=== PATIENT | female | born 1935 | race Caucasian/White ===

== ENCOUNTER 2018-02-23 23:18 | Emergency (ER) | payer MEDICARE, BC ==
--- NOTE | 2018-02-23 23:36 | ED ---
Altered Mental Status - HPI Summary HPI Summary: This patient is an 82 year old F BIBA to [facility] accompanied by daughter with a chief complaint of increased agitation that began earlier today. The patient rates the pain 0/10 in severity. Symptoms aggravated by nothing. Symptoms alleviated by EMS treatment [employer]. Per EMS, patients assisted living facility has said that with the patients recent move and new medications, she became agitated. - History Of Current Complaint Stated Complaint: AMS Onset/Duration: Still Present Timing: Constant Severity Initially: Mild Severity Currently: Mild Character: Agitation Aggravating Factor(s): Nothing Alleviating Factor(s): Other - EMS treatment - Allergies/Home Medications Allergies/Adverse Reactions: Allergies Allergy/AdvReac Type Severity Reaction Status Date / Time Penicillins Allergy Unknown Verified 02/23/18 23:34 Reaction Details PMH/Surg Hx/FS Hx/Imm Hx Previously Healthy: No Cardiovascular History: Reports: Other Cardiovascular Problems/Disorders - Bundle Branch Block. Tachycardia. Low ejection fraction Opthamlomology History: Denies: Hx Legally Blind EENT History: Denies: Hx Deafness Neurological History: Reports: Other Neuro Impairments/Disorders - Alzheimer's Infectious Disease History: Denies: Traveled Outside the [place] in Last 30 Days - Family History Known Family History: Negative: Diabetes - Social History Occupation: Retired Lives: Assisted Living Alcohol Use: Occasionally Hx Substance Use: No Substance Use Type: Reports: None Hx Tobacco Use: No Smoking Status (MU): Unknown if Ever Smoked Review of Systems Negative: Fever Neurological: Other - Positive increased agitation All Other Systems Reviewed And Are Negative: Yes Physical Exam - Summary Physical Exam Summary: Appearance: Well-appearing, Well-nourished, lying in bed comfortably Skin: Warm, dry, no obvious rash Eyes: sclera anicteric, no conjunctival pallor ENT: mucous membranes moist, pharynx appears normal Neck: Supple, nontender Respiratory: Clear to auscultation, no signs of respiratory distress Cardiovascular: Normal S1, S2. No murmurs. Normal distal pulses in tibial and radial bilaterally. Abdomen: Soft, nontender, normal active bowel sounds present Musculoskeletal: Normal, Strength/ROM Intact Neurological: A&Ox3, awake and alert, mentation is normal, speech is fluent and appropriate Psychiatric: affect is normal, does not appear anxious or depressed Triage Information Reviewed: Yes Vital Signs Reviewed: Yes Altered Mental Statu Course/Dx - Diagnoses Provider Diagnoses: Dementia with behavioral disturbance Discharge - Sign-Out/Discharge Documenting (check all that apply): Patient Departure - Discharge Plan Condition: Improved Disposition: HOME Patient Education Materials: Alzheimer Disease (DC) Referrals: Care [facility] [Outside] No Primary Care Phys,NOPCP [Primary Care Provider] - Additional Instructions: Given the severity of her agitation tonight, I think it would be reasonable to step up the ativan to 4 times a day, at least until she seems better adjusted. The major side effect is sedation, but it would be quite uncommon for ativan to cause significant cardiac side effects. If she seems excessively sedated, you can always back off on the frequency of the dosing. - Billing Disposition and Condition Condition: IMPROVED Disposition: Home - Attestation Statements Document Initiated by Cruz: Yes Documenting Scribe: Liliana Turcios Provider For Whom Stellae is Documenting (Include Credential): Juan Diego Cowan MD Scribe Attestation: ILiliana, scribed for Juan Diego Cowan MD on 02/24/18 at 0428. Scribe Documentation Reviewed: Yes Provider Attestation: The documentation as recorded by the Liliana winston accurately reflects the service I personally performed and the decisions made by me, Juan Diego Cowan MD
[2018-02-24 00:24] LABS: Urine Appearance Clear; Urine Blood 1+ (Negative); Urine Color Yellow; Urine Ketones Negative (Negative); Urine Protein Negative (Negative); Urine Red Blood Cell 1+(3-5/hpf) (Absent); Urine Specific Gravity 1.013 (1.010-1.030); Urine Urobilinogen Negative (Negative); Urine White Blood Cell Trace(0-5/hpf) (Absent)
[2018-02-24 00:43] VITALS: BP 129/69
== END 2018-02-24 00:53 | disposition home or self-care (01) ==
LOC: ED 23:18
DX: F03.91 Unspecified dementia, unspecified severity, with behavioral disturbance (principal); Z88.0 Allergy status to penicillin
CPT/HCPCS: 81003; 81015; 87086; 99282